=== PATIENT | female | born 1955 | race African-American/Black ===

== ENCOUNTER 2017-05-03 21:22 | Emergency (ER) | payer OTHER ==
[~2017-05-03] VITALS: Ht 162.6 cm; Wt 101.0 kg
[2017-05-04 09:08] LABS: BASOPHILS % 0.9 % (0.0-2.0); EOSINOPHILS % 2.4 % (0.0-5.0); HEMATOCRIT. 41.1 % (36.0-48.0); HEMOGLOBIN. 13.4 g/dL (12.0-16.0); LYMPHOCYTES % 22.5 % (20.0-50.0); MEAN CORPUSCULAR HEMOGLOBIN 29.4 pg (28.0-32.0); MEAN PLATELET VOLUME 11.4 fl (7.4-10.4); MONOCYTES % 7.2 % (2.0-8.0); PLATELET 146 x1000/uL (130-400); RED BLOOD CELL COUNT 4.57 mill/uL (4.2-5.4); RED CELL DISTRIBUTION WIDTH 14.2 % (11.6-14.6)
[2017-05-04 09:23] LABS: CARBON DIOXIDE 28 mEq/L (21-32); CHLORIDE 108 mEq/L (98-107); ETHANOL BLOOD < 10 mg/dL
[2017-05-04 09:30] VITALS: BP 160/78
== END 2017-05-04 10:57 | disposition left against medical advice (07) ==
LOC: ER 21:37
DX: R41.0 Disorientation, unspecified (principal)
CPT/HCPCS: 36415; 80053; 85025; 99284; G0482